=== PATIENT | male | born 1955 | race Caucasian/White ===

== ENCOUNTER 2019-12-21 11:50 | Emergency (ER) | payer MEDICAID, MEDICARE ==
[~2019-12-21] VITALS: Ht 172.7 cm; Wt 80.9 kg
[~2019-12-21 11:50] MED LIST: CLON-527 PO; FLO0.4C PO; Lisinopril PO; QUET-1 PO; SIMV10TA2 PO; ZIPR20CA2 PO
--- NOTE | 2019-12-21 11:58 | NUR ---
Pt to ct.
[2019-12-21] MEDS ORDERED: niCARDipine-NS 40mg/200ml IVPB 200 ML IV SCH (12:15)
[2019-12-21] MEDS ORDERED: niCARdipine I.V. 50 MG in normal saline 250ml IV soln 230 ML IV SCH (12:25)
[2019-12-21 12:30] LABS: BASOPHILS % (AUTO) 0.5 % (0-1); EOSINOPHILS % (AUTO) 0.6 % (0-6); HEMATOCRIT 36.5 % (42.0-52.0); HEMOGLOBIN 12.1 g/dl (14.0-17.9); LYMPHOCYTES # (AUTO) 0.9 X10'3 (1.1-4.8); LYMPHOCYTES % (AUTO) 11.9 % (21-51); MEAN CORPUSCULAR HEMOGLOBIN 31.8 PG (27.0-31.0); MEAN CORPUSCULAR HGB CONC 33.3 g/dL (33.0-36.5); MEAN CORPUSCULAR VOLUME 95.5 FL (78-98); MONOCYTES # (AUTO) 0.3 X10'3 (0-0.9); MONOCYTES % (AUTO) 4.4 % (2-12); NEUTROPHILS % (AUTO) 82.6 % (42-75); PLATELET COUNT 230 X10'3 (140-440); RED BLOOD COUNT 3.82 X10'6 (4.70-6.10); RED CELL DISTRIBUTION WIDTH 13.5 % (11.5-14.5); WHITE BLOOD COUNT 7.2 X10'3 (4.5-11.0)
[2019-12-21] MEDS ORDERED: niCARDipine-NS 40mg/200ml IVPB 200 ML IV ONE (12:40)
[2019-12-21 12:44] LABS: PARTIAL THROMBOPLASTIN TIME 29 SECONDS (22-32)
[2019-12-21 12:45] LABS: ALANINE AMINOTRANSFERASE 23 U/L (12-78); ALBUMIN 3.3 G/DL (3.4-5.0); ALBUMIN/GLOBULIN RATIO 0.9 (1.1-1.5); ALKALINE PHOSPHATASE 44 IU/L (46-116); ANION GAP 8 (8-16); ASPARTATE AMINO TRANSFERASE 20 U/L (10-37); BILIRUBIN,TOTAL 0.3 MG/DL (0.1-1.0); BLOOD UREA NITROGEN 15 MG/DL (7-18); BUN/CREATININE RATIO 14.3 (5.4-32.0); CALCIUM 8.4 MG/DL (8.5-10.1); CHLORIDE 106 MMOL/L (99-107); CREATININE 1.05 MG/DL (0.60-1.10); GLUCOSE 139 MG/DL (70-104); POTASSIUM 3.6 MMOL/L (3.5-5.1); SODIUM 143 MMOL/L (135-145); TOTAL CARBON DIOXIDE 29.1 MMOL/L (24-32); TOTAL PROTEIN 7.1 G/DL (6.4-8.2); eGFR 72 ML/MIN
[2019-12-21 12:49] LABS: TROPONIN I < 0.04 NG/ML (0.0-0.05)
[2019-12-21 13:47] VITALS: BP 150/73
== END 2019-12-21 13:55 | disposition short-term general hospital (02) ==
LOC: ER 11:51
DX: I62.9 Nontraumatic intracranial hemorrhage, unspecified (principal); I16.1 Hypertensive emergency; R51 Headache; R53.1 Weakness; R47.81 Slurred speech; F17.200 Nicotine dependence, unspecified, uncomplicated; F12.90 Cannabis use, unspecified, uncomplicated; Z72.89 Other problems related to lifestyle; Z98.890 Other specified postprocedural states; Z79.899 Other long term (current) drug therapy
CPT/HCPCS: 36415; 70450; 71045; 80053; 82948; 84484; 85025; 85610; 85730; 93005; 96365; 99291

== ENCOUNTER 2020-08-16 12:02 | Day surgery (SDC) | payer MEDICARE ==
[~2020-08-16] VITALS: Ht 172.7 cm; Wt 89.8 kg
[~2020-08-16 12:02] MED LIST changes: +AMLO5TAB16 PO; +ATOR40TA72 PO; -CLON-527 PO; +DOCUMENT DATE & TIME OF BETA-BLOCKER PO ONE; -FLO0.4C PO; +LISI40TA13 PO; -Lisinopril PO; +METO50TA16 PO; -QUET-1 PO; -SIMV10TA2 PO; -ZIPR20CA2 PO; +cefazolin/dext.iso 2gm/100ml IV ONE; +famotidine 20mg tablet PO ONE; +ringers solution, lacted 1,000 ML IV SCH
[2020-08-16 13:00] VITALS: BP 130/81
[2020-08-16 13:48] LABS: BASOPHILS % (AUTO) 0.4 % (0-1); EOSINOPHILS # (AUTO) 0.1 X10'3 (0-0.9); EOSINOPHILS % (AUTO) 1.5 % (0-6); LYMPHOCYTES # (AUTO) 1.7 X10'3 (1.1-4.8); LYMPHOCYTES % (AUTO) 24.3 % (21-51); MEAN CORPUSCULAR HEMOGLOBIN 31.1 PG (27.0-31.0); MEAN CORPUSCULAR HGB CONC 33.7 g/dL (33.0-36.5); MEAN CORPUSCULAR VOLUME 92.3 FL (78-98); MEAN PLATELET VOLUME 7.4 FL (7.4-10.4); MONOCYTES # (AUTO) 0.7 X10'3 (0-0.9); MONOCYTES % (AUTO) 10.1 % (2-12); NEUTROPHILS # (AUTO) 4.4 X10'3 (1.8-7.7); NEUTROPHILS % (AUTO) 63.7 % (42-75); PRE OP HEMATOCRIT 35.5 % (42.0-52.0); PRE OP PLATELET COUNT 259 X10'3 (140-440); RED BLOOD COUNT 3.84 X10'6 (4.70-6.10); RED CELL DISTRIBUTION WIDTH 14.6 % (11.5-14.5)
[2020-08-16] MEDS ORDERED: LIDOcaine 1% 30ml preserv. free vial ONE (13:56)
[2020-08-16] MEDS ORDERED: BUPIVAcaine/PF 2.5 mg/ml (0.25%) 30ml vial ONE (13:56)
[2020-08-16 14:02] LABS: ALBUMIN 3.1 G/DL (3.4-5.0); ALBUMIN/GLOBULIN RATIO 0.8 (1.1-1.5); ALKALINE PHOSPHATASE 55 IU/L (46-116); BLOOD UREA NITROGEN 14 MG/DL (7-18); BUN/CREATININE RATIO 14.6 (5.4-32.0); CHLORIDE 105 MMOL/L (99-107); CREATININE 0.96 MG/DL (0.60-1.10); PRE OP ALT 27 U/L (30-65); PRE OP ANION GAP 7 (8-16); PRE OP AST 16 U/L (10-37); PRE OP BILIRUB, TOTAL 0.2 MG/DL (0.0-1.0); PRE OP GLUCOSE 79 MG/DL (70-104); PRE OP POTASSIUM 4.5 MMOL/L (3.4-5.1); PRE OP SODIUM 144 MMOL/L (135-145); TOTAL CARBON DIOXIDE 31.6 MMOL/L (24-32); TOTAL PROTEIN 6.8 G/DL (6.4-8.2); eGFR 79 ML/MIN
[2020-08-16] MEDS ORDERED: sevoflurane 250ml liquid IH ONE (14:52)
[2020-08-16] MEDS ORDERED: fentaNYL/PF 50MCG/1 ML 2ML syringe ONE (14:59)
[2020-08-16] MEDS ORDERED: midazolam 1 mg/ML 2ml injection ONE (15:00)
[2020-08-16] MEDS ORDERED: LIDOcaine 2% 5ml jelly ONE (15:02)
[2020-08-16] MEDS ORDERED: LIDOcaine 2% (20mg/ml) 5ml vial ONE (15:21)
[2020-08-16] MEDS ORDERED: propofol inj 20 ML IV ONE (15:21)
[2020-08-16] MEDS ORDERED: rocuronium 10mg/ml inj IV ONE (15:21)
[2020-08-16] MEDS ORDERED: fentaNYL /PF 50mcg/ml 5ml ampule ONE (16:07)
[2020-08-16] MEDS ORDERED: ondansetron/PF 4mg/2ml inj ONE (16:08)
[2020-08-16] MEDS ORDERED: dexamethasone sod phosphate 4mg/ml inj. ONE (16:08)
[2020-08-16] MEDS ORDERED: neostigmine methylsulfate 1 MG/ML 10ml vial ONE (16:40)
[2020-08-16] MEDS ORDERED: glycopyrrolate 0.2mg/ml inj ONE (16:40)
[2020-08-16 16:53] VITALS: BP 195/92
--- NOTE | 2020-08-16 16:53 | NUR ---
Received from OR via PIO, accompanied by Anesthesiologist RENEE and report given by Anesthesiolgist. PATIENT WITH 20G PIV IN LEFT UE RUNNING LR AT 100. PATIENT DENIES PAIN. VOIDED 250 IN URINAL UPON ARRIVAL. DECLINES PAIN MEDS OR NAUSEA MEDS AT THIS TIME.3 ABDOMINAL BANDAIDS PRESENT THAT ARE CDI Addendum: 08/16/20 at 1717 by Chava Rosenberg RN, RN Amended: Links added.
[2020-08-16 17:13] VITALS: BP 150/71
[2020-08-16] MEDS ORDERED: meperidine/PF 25mg/ml syringe ONE (17:13)
[2020-08-16] MEDS ORDERED: labetalol 20mg/4ml (5mg/ml) syringe IV PRN (17:15)
[2020-08-16] MEDS ORDERED: ringers solution, lacted 1,000 ML IV SCH (17:15)
[2020-08-16] MEDS ORDERED: acetaminophen 1,000mg/100ml IV 100 ML IV PRN (17:15)
[2020-08-16] MEDS ORDERED: hydrALAZINE 20mg/ml inj. IV PRN (17:15)
[2020-08-16] MEDS ORDERED: ondansetron/PF 4mg/2ml inj IV PRN (17:15)
[2020-08-16] MEDS ORDERED: HYDROcodone/acetaminophen 5mg/325mg tablet PO PRN (17:15)
[2020-08-16] MEDS ORDERED: meperidine/PF 25mg/ml syringe IV PRN ×3 (17:15)
[2020-08-16] MEDS ORDERED: proCHLORperazine 10 MG/2 ml inj IV PRN (17:15)
[2020-08-16] MEDS ORDERED: HYDROcodone/acetaminophen 10/325mg tab PO PRN (17:15)
[2020-08-16] MEDS ORDERED: morphine 4 MG/ML inj SYRINge IV PRN (17:15)
[2020-08-16] MEDS ORDERED: morphine 2 MG/ML inj. syringe IV PRN (17:15)
[2020-08-16 17:23] VITALS: BP 109/66
--- NOTE | 2020-08-16 17:33 | NUR ---
ALL DC CRITERIA HAS BEEN MET. IV TAKEN OUT WITHOUT ISSUE OR COMPLICATION, VSS, DRESSING CDI. VOIDED. PATIENT DENIES PAIN OR NEED FOR MEDS. PATIENT UNDERSTOOD ALL DC INSTRUCTIONS. OUT VIA WHEELCHAIR WHERE SPOUSE OVE PATIENT HOME. Addendum: 08/16/20 at 1814 by Chava Rosenberg RN, RN Amended: Links added.
== END 2020-08-16 17:33 | disposition home or self-care (01) ==
LOC: PAS 12:02
PROVIDERS: ATTEND Surgery
DX: K42.0 Umbilical hernia with obstruction, without gangrene (principal); K40.90 Unilateral inguinal hernia, without obstruction or gangrene, not specified as recurrent; Z20.822 Contact with and (suspected) exposure to COVID-19; J44.9 Chronic obstructive pulmonary disease, unspecified; I10 Essential (primary) hypertension; N40.0 Benign prostatic hyperplasia without lower urinary tract symptoms; E66.2 Morbid (severe) obesity with alveolar hypoventilation; Z68.31 Body mass index [BMI] 31.0-31.9, adult; Z87.891 Personal history of nicotine dependence; F12.90 Cannabis use, unspecified, uncomplicated; Z86.73 Personal history of transient ischemic attack (TIA), and cerebral infarction without residual deficits; Z98.890 Other specified postprocedural states; Z91.013 Allergy to seafood; Z82.49 Family history of ischemic heart disease and other diseases of the circulatory system; Z83.6 Family history of other diseases of the respiratory system
CPT/HCPCS: 36415; 49587; 49650; 80053; 85025; 87426; 93005; C1781; J1100; J2001; J2175; J2250; J2405; J2704; J2710; J3010; J3490; J7120; A4215; A4618; A7000

== ENCOUNTER 2023-07-02 06:59 | Day surgery (SDC) | payer MEDICARE ==
[2023-06-25 12:13] LABS: BASOPHILS % (AUTO) 0.7 % (0-1); EOSINOPHILS # (AUTO) 0.1 X10'3 (0-0.9); EOSINOPHILS % (AUTO) 2.6 % (0-6); LYMPHOCYTES # (AUTO) 1.6 X10'3 (1.1-4.8); LYMPHOCYTES % (AUTO) 28.5 % (21-51); MEAN CORPUSCULAR HEMOGLOBIN 33.3 PG (27.0-31.0); MEAN CORPUSCULAR HGB CONC 33.7 g/dL (33.0-36.5); MONOCYTES # (AUTO) 0.5 X10'3 (0-0.9); MONOCYTES % (AUTO) 9.5 % (2-12); NEUTROPHILS # (AUTO) 3.3 X10'3 (1.8-7.7); NEUTROPHILS % (AUTO) 58.7 % (42-75); PRE OP HEMATOCRIT 37.2 % (42.0-52.0); PRE OP HEMOGLOBIN 12.5 g/dL (14.0-17.9); PRE OP PLATELET COUNT 288 X10'3 (140-440); PRE OP WHITE BLOOD COUNT 5.5 10'3 (4.8-10.8); RED BLOOD COUNT 3.76 X10'6 (4.70-6.10); RED CELL DISTRIBUTION WIDTH 14.5 % (11.5-14.5)
[2023-06-25 12:28] LABS: ALBUMIN 3.3 G/DL (3.4-5.0); ALBUMIN/GLOBULIN RATIO 0.9 (1.1-1.5); ALKALINE PHOSPHATASE 46 IU/L (46-116); BLOOD UREA NITROGEN 14 MG/DL (7-18); BUN/CREATININE RATIO 15.4 (10.0-20.0); CALCIUM 8.4 MG/DL (8.5-10.1); CHLORIDE 108 MMOL/L (99-107); CREATININE 0.91 MG/DL (0.60-1.10); PRE OP ALT 25 U/L (30-65); PRE OP ANION GAP 9 (8-16); PRE OP AST 17 U/L (10-37); PRE OP BILIRUB, TOTAL 0.2 MG/DL (0.0-1.0); PRE OP GLUCOSE 90 MG/DL (70-104); PRE OP POTASSIUM 4.1 MMOL/L (3.4-5.1); PRE OP SODIUM 144 MMOL/L (135-145); TOTAL CARBON DIOXIDE 26.7 MMOL/L (24-32); TOTAL PROTEIN 6.8 G/DL (6.4-8.2); eGFR 84 ML/MIN
[2023-07-02] VITALS (17 sets, daily range): BP systolic 98–177; BP diastolic 52–90; PULSE 50–68; RESP 12–16; TEMP 84.2–98.1; O2SAT 90–100
[~2023-07-02] VITALS: Ht 172.7 cm; Wt 84.2 kg
[2023-07-02] MEDS: cefazolin 2gm/D5W 100mL 100 ML IV ONE (05:30)
[~2023-07-02 06:59] MED LIST changes: -cefazolin/dext.iso 2gm/100ml IV ONE; -famotidine 20mg tablet PO ONE
[2023-07-02] MEDS ORDERED: fentaNYL/PF 50MCG/1 ML 2ML syringe IV PRN ×2 (07:30)
[2023-07-02] MEDS ORDERED: morphine 2 MG/ML inj. syringe IV PRN (07:30)
[2023-07-02] MEDS ORDERED: labetalol 20mg/4ml (5mg/ml) syringe IV PRN (07:30)
[2023-07-02] MEDS: ringers solution, lacted 1,000 ML IV SCH (07:36)
[2023-07-02] MEDS: famotidine 20mg tablet PO ONE (07:36)
[2023-07-02] MEDS ORDERED: BUPIVAcaine/PF 2.5mg/ml (0.25%) 10ml vial ONE (08:44)
[2023-07-02] MEDS ORDERED: LIDOcaine 1% 30ml preserv. free vial ONE (08:44)
[2023-07-02] MEDS ORDERED: neostigmine methylsulfate 1 MG/ML 10ml vial ONE (08:56)
[2023-07-02] MEDS ORDERED: desflurane 240ml liquid inh. IH ONE (08:56)
[2023-07-02] MEDS ORDERED: dexamethasone sod phosphate 10mg/ml inj ONE (08:56)
[2023-07-02] MEDS: LIDOcaine 1% 30ml preserv. free vial IJ ONE (09:00)
[2023-07-02] MEDS: BUPIVAcaine/PF 5 MG/ML 10ML VIAL IJ ONE (09:00)
[2023-07-02] MEDS: BUPIVAcaine/PF 2.5mg/ml (0.25%) 10ml vial IJ ONE (09:00)
[2023-07-02] MEDS ORDERED: rocuronium 10mg/ml inj IV ONE (09:09)
[2023-07-02] MEDS ORDERED: propofol inj 20 ML IV ONE (09:09)
[2023-07-02] MEDS ORDERED: ondansetron/PF 4mg/2ml inj ONE (09:09)
[2023-07-02] MEDS ORDERED: glycopyrrolate 0.2mg/ml inj ONE (09:09)
[2023-07-02] MEDS ORDERED: LIDOcaine 2% (20mg/ml) 5ml vial ONE (09:09)
[2023-07-02] MEDS ORDERED: midazolam 1 mg/ML 2ml injection ONE (09:10)
[2023-07-02] MEDS ORDERED: fentaNYL/PF 50MCG/1 ML 2ML syringe ONE (09:10)
[2023-07-02] MEDS ORDERED: acetaminophen 1,000mg/100ml IV 100 ML IV ONE (09:11)
[2023-07-02] MEDS ORDERED: phenylephrine 10mg/ml inj. -priapism dosing ONE (09:21)
[2023-07-02] MEDS ORDERED: ePHEDrine 50MG/ML INJ. ONE (09:27)
[2023-07-02] MEDS: hydrALAZINE 20mg/ml inj. IV PRN (10:22)
[2023-07-02] MEDS ORDERED: HYDROcodone/acetaminophen 5mg/325mg tablet PO PRN (10:30)
[2023-07-02] MEDS: morphine 4 MG/ML inj SYRINge IV PRN (10:39)
[2023-07-02] MEDS: ondansetron/PF 4mg/2ml inj IV PRN (11:18)
== END 2023-07-02 11:58 | disposition home or self-care (01) ==
LOC: PAS 06:59
PROVIDERS: ATTEND Surgery
DX: K40.90 Unilateral inguinal hernia, without obstruction or gangrene, not specified as recurrent (principal); I10 Essential (primary) hypertension; E78.5 Hyperlipidemia, unspecified; Z86.73 Personal history of transient ischemic attack (TIA), and cerebral infarction without residual deficits; Z87.891 Personal history of nicotine dependence; Z79.899 Other long term (current) drug therapy; Z98.890 Other specified postprocedural states; Z88.8 Allergy status to other drugs, medicaments and biological substances; Z82.5 Family history of asthma and other chronic lower respiratory diseases; Z82.3 Family history of stroke; Z82.61 Family history of arthritis; Z82.49 Family history of ischemic heart disease and other diseases of the circulatory system
CPT/HCPCS: 36415; 80053; 82948; 85025; 93005; A4215; A4618; C1781; J0131; J0360; J0690; J1100; J2250; J2270; J2370; J2405; J2704; J2710; J3010; J3490; J7120